=== PATIENT | female | born 1970 | race Caucasian/White ===

== ENCOUNTER 2020-10-31 17:17 | Emergency (ER) | payer OTHER ==
[~2020-10-31] VITALS: Ht 160 cm; Wt 113.4 kg
[2020-10-31] MEDS ORDERED: NOHOMEMEDICATIONS (17:26)
[2020-10-31 18:10] LABS: ABSOLUTE NEUTROPHILS 5.4 thou/uL (1.4-8.2); BASOPHILS 0.6 % (0.0-2.0); EOSINOPHILS 2.2 % (0.0-3.0); HEMATOCRIT 25.6 % (37.0-47.0); HEMOGLOBIN 8.1 gm/dL (12.0-15.0); LYMPHOCYTES 18.5 % (24.0-44.0); MCH 21.5 pg (26.0-34.0); MCHC 31.8 g/dL (28.0-37.0); MCV 67.6 fL (80.0-100.0); MONOCYTES 5.9 % (1.0-8.0); PLATELET COUNT 331 thou/uL (150-400); POLYS 72.8 % (36.0-66.0); RBC 3.78 mil/uL (4.20-5.00); RDW 19.6 % (10.5-14.5); WBC 7.4 thou/uL (4.0-11.0)
[2020-10-31 18:21] LABS: CALCIUM 8.6 mg/dL (8.5-10.1); CREATININE 0.8 mg/dL (0.6-1.0); POTASSIUM 3.2 mmol/L (3.5-5.1)
[2020-10-31 18:28] LABS: ALBUMIN 3.3 g/dL (3.4-5.0); TOTAL BILIRUBIN 0.4 mg/dL (0.2-1.0); TOTAL PROTEIN 6.8 g/dL (6.4-8.2)
[2020-10-31 18:37] LABS: ANISOCYTOSIS 2+; HYPOCHROMASIA 2+; MICROCYTES 2+; POLYCHROMASIA 1+
[2020-10-31 19:04] LABS: % SATURATION 7 % (20-39); IRON 26 ug/dL (50-170); TIBC 377 ug/dL (250-450)
[2020-10-31] MEDS ORDERED: POTASSIUM20 PO (19:43)
[2020-10-31] MEDS ORDERED: PROAIR HFA8.5 GM INH (19:43)
[2020-10-31] MEDS ORDERED: IRON325 PO (19:43)
[2020-10-31 19:57] VITALS: BP 131/74
--- NOTE | 2020-11-01 07:34 | EKG ---
[address] [address] ELECTROCARDIOGRAM REPORT Name: GIORGI BROWER [facility] [id number] Admission: 10/31/20 Attend Phys: Discharge: 10/31/20 Date of : 74 Report #: [id number] [facility] ED Test Date: 2020-10-31 Test Time: 17:31:51 Pat Name: GIORGI BROWER Department: Room: Gender: F [employer] Machine Operator: gerardo : 1970 Requested By: Kevan Flores Order Number: [id number] MD: [facility] Measurements Intervals [place] Rate: 104 P: 54 FL: 129 QRS: 0 QRSD: 79 T: 38 QT: 337 QTc: 444 Interpretive Statements Sinus tachycardia No previous ECG available for comparison Electronically Signed On 11-01-2020 7:34:46 CDT by [facility] [email or web address] <ELECTRONICALLY SIGNED> By: [facility] MD, [facility] 11/01/20 0734 1731 1731 [facility] Stanford MD, FACC /EPI
== END 2020-10-31 19:57 | disposition home or self-care (01) ==
LOC: ER 17:17
PROVIDERS: Physician Assistant
DX: R06.02 Shortness of breath (principal); R60.0 Localized edema; Z98.51 Tubal ligation status; Z88.0 Allergy status to penicillin; Z72.89 Other problems related to lifestyle